=== PATIENT | male | born 1985 ===

== ENCOUNTER 2017-04-21 01:40 | Emergency (ER) | payer OTHER ==
[2017-04-21 01:54] VITALS: RESP 14; TEMP 97.7
--- NOTE | 2017-04-21 02:01 | C.PDOC ---
History Of Present Illness 31 y/o male presents to the ED for evaluation of left-sided facial pain and swelling after he sustained a fall earlier tonight. Patient admits he was been drinking "a lot" prior to sustaining the fall. He states he think he passed out. Patient also reports pain and swelling to right thumb. He denies vision change, extremity numbness/weakness. - HPI Time Seen by Provider: 04/21/17 01:56 Chief Complaint (Nursing): Trauma History Per: Patient History/Exam Limitations: intoxication Onset/Duration Of Symptoms: Hrs Location Of Injury: Right: Hand (thumb), Left: Face Associated Symptoms: LOC Additional History Per: Patient - Fall Fall:Prior To Injury: Lost Balance Past Medical History Reviewed: Historical Data, Nursing Documentation, Vital Signs Vital Signs: Last Vital Signs Temp 97.7 F 04/21/17 01:48 Pulse 70 04/21/17 03:55 Resp 14 04/21/17 03:55 BP 120/80 04/21/17 03:55 Pulse Ox 96 04/21/17 04:10 - Medical History PMH: No Chronic Diseases Surgical History: No Surg Hx Family History: States: Unknown Family Hx - Social History Hx Alcohol Use: Yes Hx Substance Use: No - Immunization History Hx Tetanus Toxoid Vaccination: No Hx Influenza Vaccination: No Hx Pneumococcal Vaccination: No Review Of Systems Constitutional: Positive for: Other (+ETOH intoxication ) Eyes: Negative for: Vision Change Musculoskeletal: Positive for: Hand Pain (right thumb ), Other (+left-sided facial pain and swelling ) Neurological: Positive for: Other (+LOC ) Physical Exam - Physical Exam Appears: No Acute Distress Skin: Normal Color, Warm, Dry, Other (+superficial abrasion to bilteral knees ) Head: Normacephalic, Tenderness (lateral left cheek area ), Swelling (lateral left cheek area ), No Other (crepitus ) Eye(s): bilateral: Normal Inspection, PERRL, EOMI Nose: Normal, No Epistaxis Oral Mucosa: Moist, Other (alcohol on breath ) Neck: Normal ROM, Supple Chest: Symmetrical, No Deformity, No Tenderness Cardiovascular: Rhythm Regular, No Murmur Respiratory: Normal Breath Sounds, No Rales, No Rhonchi, No Wheezing Gastrointestinal/Abdominal: Soft, No Tenderness, No Guarding, No Rebound Back: No Vertebral Tenderness, No Paraspinal Tenderness Extremity: No Normal ROM (limited, secondary to pain with flexion of right thumb ), Tenderness (base of right thumb ), Capillary Refill (less than 2 seconds ), Swelling (base of right thumb ) Pulses: Right Radial: Normal Neurological/Psych: Oriented x3, Normal Speech, Other (arousable to touch and verbal stimuli ) Gait: Steady ED Course And Treatment O2 Sat by Pulse Oximetry: 96 (on RA ) Pulse Ox Interpretation: Normal - CT Scan/US CT Maxillofacial Other Rad Studies (CT/US): Read By Radiologist, Radiology Report Reviewed CT/US Interpretation: EXAM: CT Maxillofacial Without Intravenous Contrast. CLINICAL HISTORY: 31 years old, male; Pain; Face pain and headache and other: Left side swelling; Additional info: Pain. left face s. P fall. TECHNIQUE: Axial computed tomography images of the face without intravenous contrast. All CT scans at this. facility use one or more dose reduction techniques, viz.: automated exposure control; ma/kV. adjustment per patient size (including targeted exams where dose is matched to indication; i.e. head);. or iterative reconstruction technique. Coronal and sagittal reformatted images were created and reviewed. COMPARISON: No relevant prior studies available. FINDINGS: Bones/joints: No acute fracture. Soft tissues: Infiltration of the soft tissues overlying the left zygomatic arch. Orbits: Preserved. Sinuses: Aerated. No air-fluid levels. IMPRESSION: Soft tissue swelling, without underlying fracture, as detailed above. CT Head Other Rad Studies (CT/US): Read By Radiologist, Radiology Report Reviewed CT/US Interpretation: EXAM: CT Head Without Intravenous Contrast. CLINICAL HISTORY: 31 years old, male; Pain; Headache; Additional info: S. P fall. TECHNIQUE: Axial computed tomography images of the head/brain without intravenous contrast. All CT scans at. this facility use one or more dose reduction techniques, viz.: automated exposure control; ma/kV. adjustment per patient size (including targeted exams where dose is matched to indication; i.e. head);. or iterative reconstruction technique. COMPARISON: No relevant prior studies available. FINDINGS: Brain: No acute intracranial hemorrhage. No significant white matter disease. No edema. Ventricles: No significant ventriculomegaly. Bones: No acute displaced fracture. Sinuses: Unremarkable as visualized. No acute sinusitis. Mastoid air cells: Unremarkable as visualized. No mastoid effusion. IMPRESSION: No acute intracranial hemorrhage , or suspicious mass effect. Medical Decision Making Medical Decision Making: Impression: 31 y/o male with left-sided facial pain and swelling, right thumb pain Plan: * CT Head * CT Maxillofacial * Right hand XR * Tylenol PO * reassess and disposition Progress: CT Head, CT Maxillofacial, Right Hand XR ordered and reviewed. CT reports reviewed with no acute findings. XRay showed fracture to base of proximal phlanx with subluxation. Dr Allison agreed. Patient received Tylenol PO. Thumb spica splint applied by CP and checked by me. Patient provided with verbal and written instructions to follow up with orthopedic Dr Peralta for further evaluation. Patient verbalized understanding. Disposition Counseled Patient/Family Regarding: Diagnosis, Need For Followup, Rx Given - Disposition Referrals: Jeannine Baca MD [Staff Provider] - Disposition: HOME/ ROUTINE Disposition Time: 03:02 Condition: STABLE Additional Instructions: Your xray shows a fracture. It is very important you follow up with orthopedic within 1-4 days. A splint has been applied which is a temporary cast. Do not wet splint, keep out of bath, and consider plastic bag. 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 - Scribe Statement The provider has reviewed the documentation as recorded by the Scribe (Dottie Walls) All medical record entries made by the Scribe were at my direction and personally dictated by me. I have reviewed the chart and agree that the record accurately reflects my personal performance of the history, physical exam, medical decision making, and the department course for this patient. I have also personally directed, reviewed, and agree with the discharge instructions and disposition.
--- NOTE | 2017-04-21 02:55 | CT ---
EXAM: CT Head Without Intravenous Contrast CLINICAL HISTORY: 31 years old, male; Pain; Headache; Additional info: S. P fall TECHNIQUE: Axial computed tomography images of the head/brain without intravenous contrast. All CT scans at this facility use one or more dose reduction techniques, viz.: automated exposure control; ma/kV adjustment per patient size (including targeted exams where dose is matched to indication; i.e. head); or iterative reconstruction technique. COMPARISON: No relevant prior studies available. FINDINGS: Brain: No acute intracranial hemorrhage. No significant white matter disease. No edema. Ventricles: No significant ventriculomegaly. Bones: No acute displaced fracture. Sinuses: Unremarkable as visualized. No acute sinusitis. Mastoid air cells: Unremarkable as visualized. No mastoid effusion. IMPRESSION: No acute intracranial hemorrhage, or suspicious mass effect.
--- NOTE | 2017-04-21 02:59 | CT ---
EXAM: CT Maxillofacial Without Intravenous Contrast CLINICAL HISTORY: 31 years old, male; Pain; Face pain and headache and other: Left side swelling; Additional info: Pain left face s. P fall TECHNIQUE: Axial computed tomography images of the face without intravenous contrast. All CT scans at this facility use one or more dose reduction techniques, viz.: automated exposure control; ma/kV adjustment per patient size (including targeted exams where dose is matched to indication; i.e. head); or iterative reconstruction technique. Coronal and sagittal reformatted images were created and reviewed. COMPARISON: No relevant prior studies available. FINDINGS: Bones/joints: No acute fracture. Soft tissues: Infiltration of the soft tissues overlying the left zygomatic arch. Orbits: Preserved Sinuses: Aerated. No air-fluid levels. IMPRESSION: Soft tissue swelling, without underlying fracture, as detailed above. As
[2017-04-21 03:56] VITALS: BP 120/80; PULSE 70
[2017-04-21 04:01] VITALS: O2SAT 96
--- NOTE | 2017-04-21 06:50 | RAD ---
PROCEDURE: Right Hand Radiographs. HISTORY: pain s.p fall COMPARISON: None. FINDINGS: BONES: There is mildly displaced fracture at the base of the 1st metacarpal bone JOINTS: There is suspicious for subluxation at the 1st carpal/metacarpal joint. SOFT TISSUES: Soft tissue swelling seen around the base of the thumb OTHER FINDINGS: None. IMPRESSION: Mildly displaced fracture at the base of the 1st metacarpal bone and possible subluxation at the 1st carpometacarpal joint.
== END 2017-04-21 03:55 | disposition home or self-care (01) ==
LOC: C.ER 01:40
DX: S62.511A Displaced fracture of proximal phalanx of right thumb, initial encounter for closed fracture (principal); S00.83XA Contusion of other part of head, initial encounter; W19.XXXA Unspecified fall, initial encounter

== ENCOUNTER 2019-01-23 08:31 | Emergency (ER) | payer OTHER ==
[2019-01-23 08:39] VITALS: BMI 29.7
--- NOTE | 2019-01-23 09:01 | C.PDOC ---
History Of Present Illness 33 year old male presents to the emergency department with complaints of new onset headache for 1 week. Patient reports that headache began at the end of sexual intercourse, and has been persistent but was worse yesterday. Patient states the pain is localized to the back of his head, intermittently. Patient states that taking NSAIDs provides him with moderate relief, and he denies any other associated symptoms. Patient denies trauma and history of frequent headache. NEW ONSET GREENE X 1 WEEK. ONSET TOWARDS THE END OF SEXUAL INTERCOURSE, PERSISTENT BUT WORSE YESTERDAY. BACK OF HEAD INTERMIT. MOD RELIEF W NSAIDS. NO OTHER ASSOC SX. NO TRAUMA. DENIES HO FREQ GREENE EXAM NONTOXIC HEENT NO PHOTOPHOBIA NECK SUPPLE NO MENINGISMUS NEURO AO3, NO FOCAL DEF GAIT WNL REMAINDER NEG MDM GREENE R/O SAH. NO PRIOR EVAL FOR CURRENT SX. D/W DR LOGAN RECOMMENDS HEAD CT @ THIS TIME Time Seen by Provider: 01/23/19 08:45 Chief Complaint (Nursing): Headache History Per: Patient History/Exam Limitations: no limitations Onset/Duration Of Symptoms: Days (1), Intermittent Episodes, Sudden Onset, Persistent Current Symptoms Are (Timing): Still Present Quality: Aching Preceeding Symptoms: None Associated Symptoms: denies: Photophobia, Blurred Vision, Nausea, Vomiting, Extremity Weakness Past Medical History Reviewed: Historical Data, Nursing Documentation, Vital Signs Vital Signs: Last Vital Signs Temp 98.3 F 01/23/19 08:40 Pulse 64 01/23/19 08:40 Resp 20 01/23/19 08:40 BP 133/80 01/23/19 08:40 Pulse Ox 99 01/23/19 08:40 Primary Care Provider: Non [facility] Provider, - Medical History PMH: No Chronic Diseases Surgical History: No Surg Hx Family History: States: No Known Family Hx - Social History Hx Alcohol Use: Yes Hx Substance Use: No - Immunization History Hx Tetanus Toxoid Vaccination: No Hx Influenza Vaccination: No Hx Pneumococcal Vaccination: No Review Of Systems Except As Marked, All Systems Reviewed And Found Negative. Constitutional: Negative for: Fever, Chills Cardiovascular: Negative for: Chest Pain, Light Headedness Respiratory: Negative for: Cough, Shortness of Breath Gastrointestinal: Negative for: Nausea, Vomiting, Abdominal Pain Neurological: Negative for: Weakness, Numbness, Dizziness Physical Exam - Physical Exam Appears: Non-toxic, No Acute Distress Skin: Normal Color, Warm, Dry Head: Atraumatic, Normacephalic Eye(s): bilateral: Normal Inspection, PERRL, EOMI, Other (NO photophobia) Nose: Normal Oral Mucosa: Moist Neck: Normal, Supple, No Other (meningismus) Chest: Symmetrical Cardiovascular: Rhythm Regular Respiratory: Normal Breath Sounds Extremity: Normal ROM Neurological/Psych: Oriented x3, Normal Speech, Normal Cognition, Other (NO focal deficits) Gait: Steady (within normal limits) ED Course And Treatment O2 Sat by Pulse Oximetry: 99 (RA) Pulse Ox Interpretation: Normal Progress Note: Plan: CT Head Progress - Re-Evaluation Re-evaluation Note: 01/23/19 10:30 CT NEG. PENDING MRI. APPEARS COMFORTABLE NEURO INTACT. DOES NOT WISH PAIN RX @ THIS TIME - Data Reviewed Data Reviewed: Lab, Diagnostic imaging, Old records Medical Decision Making Medical Decision Making: Headache, rule out sub-arachnoid hemorrhage. No prior evaluation for current symptoms. Discussed with Dr. Logan, recommends Head CT at this time. Disposition Counseled Patient/Family Regarding: Studies Performed, Diagnosis, Need For Followup - Disposition Referrals: Ramses Thompson MD [Staff Provider] - [facility] [Outside] [facility] [Outside] Disposition: HOME/ ROUTINE Disposition Time: 13:00 Condition: GOOD Additional Instructions: THE CT AND MRI OF THE BRAIN REPORT ARE NORMAL. FOLLOW UP NEUROLOGY IF PERSISTENT SYMPTOMS. TAKE TYLENOL AND/OR MOTRIN DIRECTED NEEDED. Instructions: Tension Headache (DC) Forms: [facility] (Bahamian), Work Excuse - Clinical Impression Clinical Impression: Headache - Scribe Statement The provider has reviewed the documentation as recorded by the Scribe (Jeffy [email or web address]) Provider Attestation: All medical record entries made by the Scribe were at my direction and p ersonally dictated by me. I have reviewed the chart and agree that the record accurately reflects my personal performance of the history, physical exam, medical decision making, and the department course for this patient. I have also personally directed, reviewed, and agree with the discharge instructions and disposition.
[2019-01-23 09:02] VITALS: RESP 20
--- NOTE | 2019-01-23 10:04 | CT ---
Date of service: 01/23/2019 PROCEDURE: CT HEAD WITHOUT CONTRAST. HISTORY: Headache, rule out subarachnoid hemorrhage COMPARISON: 04/21/2017. TECHNIQUE: Axial computed tomography images were obtained through the head/brain without intravenous contrast. Radiation dose: Total exam DLP = 1017.17 mGy-cm. This CT exam was performed using one or more of the following dose reduction techniques: Automated exposure control, adjustment of the mA and/or kV according to patient size, and/or use of iterative reconstruction technique. FINDINGS: HEMORRHAGE: No intracranial hemorrhage. BRAIN: Mcdermott-white matter differentiation is preserved. There is no mass, mass effect or abnormal extra-axial fluid collection. There is no territorial infarction. The midline sagittal structures are normal. VENTRICLES: The ventricles are normal in size, shape and configuration. CALVARIUM: There is no calvarial fracture or extracranial soft tissue swelling. PARANASAL SINUSES: Predominantly clear. MASTOID AIR CELLS: Predominantly clear. OTHER FINDINGS: None. IMPRESSION: No acute intracranial abnormality.
[2019-01-23 12:54] VITALS: BP 148/88; PULSE 61; TEMP 98
--- NOTE | 2019-01-23 12:54 | MRI ---
Date of service: 01/23/2019 PROCEDURE: MRI BRAIN WITHOUT CONTRAST HISTORY: HEADACHE R/O BLEED COMPARISON: CT head without contrast performed earlier the same day TECHNIQUE: Multiplanar, multisequence MR images of the brain were obtained without intravenous contrast enhancement. FINDINGS: HEMORRHAGE: None DWI: No evidence of an acute or early subacute infarction. BRAIN PARENCHYMA: There are few small scattered T2/FLAIR hyperintense foci in the subcortical supratentorial white matter. There is no mass, mass effect or abnormal extra-axial fluid collection. There is no territorial infarction. The midline sagittal structures are normal. VENTRICLES: The ventricles are normal in size, shape and configuration. CRANIUM: Unremarkable. ORBITS: Grossly unremarkable. PARANASAL SINUSES/MASTOIDS: There is mild mucosal thickening in the paranasal sinuses and a small retention cyst/polyp in the right been oil chamber VASCULAR SYSTEM: There are normal signal voids in the larger intracranial arteries. OTHER FINDINGS: None. IMPRESSION: 1. No acute intracranial abnormality. 2. Multifocal small subcortical supratentorial white changes are strictly. The differential considerations include migraine headache effect, gliosis, Lyme disease, vasculitis, and left likely demyelinating disease including multiple sclerosis clinical follow-up is advised.
[2019-01-23 13:02] VITALS: O2SAT 99
== END 2019-01-23 13:14 | disposition home or self-care (01) ==
LOC: C.ER 08:31
DX: R51 Headache (principal)